=== PATIENT | female | born 1980 | race Caucasian/White ===

== ENCOUNTER 2016-07-26 08:52 | Observation (INO) | payer OTHER ==
[~2016-07-26 08:52] MED LIST: DEXAMETHASONE 10 MG/ML VIAL IVP ONE; LIDO/EPI 1% **Not for Epidural 20 ML MDV ONE; ceFAZolin 2 GM/DEXTROSE 100 ML IV ONE
[2016-07-26] MEDS ORDERED: DEXAMETHASONE 10 MG/ML VIAL ONE (09:14)
[2016-07-26] MEDS ORDERED: CEFAZOLIN 2 GM/DEXTROSE/100 ML BAG IV ONE (09:14)
[2016-07-26] MEDS ORDERED: LIDOCAINE 1% 2 ML INJ ONE (09:14)
[2016-07-26] MEDS ORDERED: LR 1,000 ML IV ONE (09:29)
[2016-07-26] MEDS ORDERED: LIDOCAINE 1% 5 ML SDV ID PRN (09:29)
[2016-07-26] MEDS ORDERED: ROCURONIUM 50 MG/5 ML VIAL ONE (10:08)
[2016-07-26] MEDS ORDERED: PROPOFOL 200 MG/20 ML VIAL ONE ×4 (10:08→14:11)
[2016-07-26] MEDS ORDERED: DEXAMETHASONE 4 MG/ML VIAL ONE ×2 (10:08→12:32)
[2016-07-26] MEDS ORDERED: LIDOCAINE 2% 100 MG/5 ML SYR ONE (10:08)
[2016-07-26] MEDS ORDERED: ONDANSETRON 4 MG/2 ML VIAL ONE ×2 (10:08→12:24)
[2016-07-26] MEDS ORDERED: fentaNYL 100 MCG/2 ML INJ ONE ×3 (10:12→14:53)
[2016-07-26] MEDS ORDERED: MIDAZOLAM 2 MG/2 ML VIAL ONE (12:22)
[2016-07-26] MEDS ORDERED: fentaNYL 250 MCG/5 ML INJ ONE (12:22)
[2016-07-26] MEDS ORDERED: LIDOCAINE 2% 5 ML SDV ONE (12:24)
[2016-07-26] MEDS ORDERED: SUCCINYLCHOLINE CHLORIDE*ANESTHESIA ONLY*200 MG/10 ML SYR IVP ONE (12:25)
[2016-07-26] MEDS ORDERED: MIDAZOLAM 2 MG/2 ML VIAL IVP ONE (12:45)
[2016-07-26] MEDS ORDERED: ONDANSETRON 4 MG/2 ML VIAL IVP PRN (14:32)
[2016-07-26] MEDS ORDERED: HYDROmorphONE/DILAUDID 1 MG/ML SYR ONE (14:48)
[2016-07-26 15:00] LABS: IONIZED CALCIUM 1.14 MMOL/L (1.12-1.30)
[2016-07-26 16:07] LABS: IONIZED CALCIUM 1.13 MMOL/L (1.12-1.30)
--- NOTE | 2016-07-26 17:30 | SOAPPROG ---
SOAP Progress Note Assessment/Plan: Pt doing well post operatively. Her ionized Ca is 1.13 MARVIN drain with bloody serous fluid, dressing intact. Vocie strong. No numbness or tingling Seen by Dr. magallon Plan: Pt s/p total thyroid today. Doing well. Plan for discharge in am. 07/26/16 17:27 07/26/16 17:31 Objective: Vital Signs Temp Pulse Resp BP Pulse Ox 36.8 C 86 20 136/79 H 92 07/26/16 17:00 07/26/16 17:00 07/26/16 17:00 07/26/16 17:00 07/26/16 17:00 07/25/16 07/26/16 07/27/16 05:59 05:59 05:59 Intake Total 1000 Output Total 75 Balance 925 - Pending Discharge Pending Discharge Within 24 Hours: Yes Pending Discharge Date: 07/27/16 Pending Discharge Time: 11:00 ICD10 Worksheet Patient Problems: Problems Problem Status Onset Goiter Acute - ICD10 Problem Qualifiers (1) Goiter
[2016-07-26] MEDS: D5W 1/2 NS W/ 20 KCl/L 1,000 ML IV SCH (18:46)
[2016-07-26] MEDS: DEXAMETHASONE 4 MG/ML VIAL IVP SCH (21:26)
[2016-07-26] MEDS: HYDROCOD/APAP 7.5/325 IN 15ML UDCUP PO PRN (21:26)
[2016-07-26 22:01] LABS: IONIZED CALCIUM 1.08 MMOL/L (1.12-1.30)
[2016-07-27] MEDS: D5W 1/2 NS W/ 20 KCl/L 1,000 ML IV SCH (02:35)
[2016-07-27 02:43] VITALS: RESP 16
[2016-07-27 04:33] LABS: IONIZED CALCIUM 1.07 MMOL/L (1.12-1.30)
[2016-07-27] MEDS: HYDROCOD/APAP 7.5/325 IN 15ML UDCUP PO PRN ×3 (04:42→13:19)
[2016-07-27] MEDS: DEXAMETHASONE 4 MG/ML VIAL IVP SCH (04:43)
--- NOTE | 2016-07-27 08:38 | SOAPPROG ---
SOAP Progress Note Assessment/Plan: Pt doing well post operatively. MARVIN drain with minimal bloody serous fluid, dressing intact. Drain removed. new dressing applied. Voice strong. No numbness or tingling Plan: Pt s/p total thyroid . Discussed post op care. F/u Wed for suture removal. 07/26/16 17:27 07/26/16 17:31 07/27/16 08:36 Objective: Vital Signs Temp Pulse Resp BP Pulse Ox 36.8 C 74 16 104/49 L 94 07/27/16 07:31 07/27/16 07:31 07/27/16 07:31 07/27/16 07:31 07/27/16 07:31 07/26/16 07/27/16 07/28/16 05:59 05:59 05:59 Intake Total 1250 Output Total 2800 Balance -1550 ICD10 Worksheet Patient Problems: Problems Problem Status Onset Goiter Acute - ICD10 Problem Qualifiers (1) Goiter
[2016-07-27] MEDS ORDERED: CALCIUM CARBONATE 500 MG CHEWABLE TAB PO SCH (09:00)
[2016-07-27 11:18] VITALS: BP 103/58; PULSE 88; TEMP 98.1; O2SAT 92
== END 2016-07-27 13:24 | disposition home or self-care (01) ==
LOC: F3E 08:52
PROVIDERS: ADMIT Otolaryngology; ATTEND Otolaryngology
PROC: 0GTK0ZZ Resection of Thyroid Gland, Open Approach (ICD-10-PCS; principal; 2016-07-26 10:15)
DX: E04.2 Nontoxic multinodular goiter (principal); J45.909 Unspecified asthma, uncomplicated
CPT/HCPCS: 60240; G0378; J0330; J0690; J1100; J1170; J2001; J2250; J2405; J2704; J3010